=== PATIENT | female | born 1960 | race Hispanic/Latino ===

== ENCOUNTER 2025-07-26 13:05 | Emergency (ER) | payer BC | END 2025-07-26 16:12 | disposition home or self-care (01) | LOC: CSHERS 13:05 | DX: S80.212A Abrasion, left knee, initial encounter (principal); S80.211A Abrasion, right knee, initial encounter; S29.9XXA Unspecified injury of thorax, initial encounter; M79.18 Myalgia, other site; E11.9 Type 2 diabetes mellitus without complications; I10 Essential (primary) hypertension; W10.9XXA Fall (on) (from) unspecified stairs and steps, initial encounter | CPT/HCPCS: 71046; 94799 ==